=== PATIENT | male | born 1930 | race Caucasian/White ===

== ENCOUNTER 2018-04-08 12:00 | Emergency (ER) | payer MEDICARE ==
[~2018-04-08] VITALS: Ht 182.9 cm; Wt 70.3 kg
[~2018-04-08 12:00] MED LIST: WARF1TAB47 PO
--- NOTE | 2018-04-08 12:03 | NUR ---
Dr Bates at the bedside for MSE.
[2018-04-08] MEDS ORDERED: DILTIAZEM HCL 25 MG IV ONE (12:09)
[2018-04-08 12:10] VITALS: BP 149/74
[2018-04-08] MEDS ORDERED: DILTIAZEM HCL 25 MG IV IV ONE ×2 (12:15→12:30)
[2018-04-08] MEDS ORDERED: ASPIRIN 81 MG TAB.CHEW ONE (12:22)
[2018-04-08 12:27] LABS: BASOPHILS % (AUTO) 0.5 % (0.0-2.0); EOSINOPHILS % (AUTO) 0.2 % (0.0-7.0); HEMOGLOBIN 12.5 g/dL (12.5-16.3); LYMPHOCYTES % (AUTO) 12.6 % (20.5-51.5); MEAN CORPUSCULAR HEMOGLOBIN 30.7 uug (23.8-33.4); MEAN CORPUSCULAR HGB CONC 33 g/dL (32.5-36.3); MEAN CORPUSCULAR VOLUME 93.1 fL (73.0-96.2); MONOCYTES # (AUTO) 0.9 K/uL (2.0-10.0); MONOCYTES % (AUTO) 12.2 % (0.0-11.0); NEUTROPHILS # (AUTO) 5.7 K/uL (1.8-8.9); NEUTROPHILS % (AUTO) 74.5 % (38.5-71.5); PLATELET COUNT (AUTO) 212 K/uL (152-348); RED BLOOD CELL COUNT(AUTO) 4.08 MIL/uL (4.06-5.63); WHITE BLOOD COUNT (AUTO) 7.7 K/uL (3.6-10.2)
[2018-04-08] MEDS ORDERED: ASPIRIN 81 MG TAB.CHEW PO ONE (12:30)
[2018-04-08 12:33] LABS: CARBON DIOXIDE 28 mmol/L (21-32); CHLORIDE 104 mmol/L (98-107); CREATININE 1.3 mg/dL (0.6-1.3); GLUCOSE 150 mg/dL (74-106); POTASSIUM 4.6 mmol/L (3.5-5.1); UREA NITROGEN, BLOOD 23 mg/dL (7-18)
--- NOTE | 2018-04-08 12:40 | NUR ---
Pt out of ER for CT.
[2018-04-08 12:46] LABS: ALANINE AMINOTRANSFERASE 35 U/L (16-63); ALKALINE PHOSPHATASE 70 U/L (50-136); ASPARTATE AMINOTRANSFERASE 23 U/L (15-37); BILIRUBIN,DIRECT 0.3 mg/dL (0.0-0.2); BILIRUBIN,TOTAL 1.2 mg/dL (0.2-1.0); TOTAL PROTEIN, SERUM 7.4 g/dL (6.4-8.2)
--- NOTE | 2018-04-08 12:51 | NUR ---
Pt back from CT, denies pain.
[2018-04-08] MEDS ORDERED: IV NORMAL SALINE 250 ML BAG IV ONE (13:00)
[2018-04-08] MEDS ORDERED: FUROSEMIDE 20 MG/2 ML VIAL IV ONE (13:15)
[2018-04-08] MEDS ORDERED: FUROSEMIDE 40 MG/4 ML VIAL ONE (13:17)
--- NOTE | 2018-04-08 13:22 | NUR ---
ARISTIDES Caldwell spoke to Dr Blue bailon Md for Pt's PMD, Dr Osborn. Per Dr Mcarthur, pt to bed transfered to [facility].
--- NOTE | 2018-04-08 13:27 | NUR ---
Facesheet and clinical data faxed to [facility] at [facility].
[2018-04-08] MEDS ORDERED: IV NS 1000 ML 1,000 ML IV PRN (14:01)
[2018-04-08] MEDS ORDERED: ONDANSETRON 4 MG/2 ML VIAL IV PRN (14:15)
[2018-04-08] MEDS ORDERED: ACETAMINOPHEN 325 MG TABLET PO PRN (14:15)
[2018-04-08] MEDS ORDERED: MAGNESIUM HYDROXIDE 30 ML LIQUID UDC PO PRN (14:15)
[2018-04-08] MEDS ORDERED: HYDROCODONE/APAP 5-325MG TABLET PO PRN (14:15)
[2018-04-08] MEDS ORDERED: Z GUARD REMEDY PASTE 57 GM TUBE TOP PRN (14:15)
--- NOTE | 2018-04-08 14:18 | NUR ---
Call received from [facility] at [facility], Patient to be admitted by Dr. Mcarthur, room #521A.
--- NOTE | 2018-04-08 14:23 | NUR ---
Call placed to [facility], Trip #[id number], ETA [id number].
--- NOTE | 2018-04-08 14:45 | NUR ---
Report given to Bianca(RN) at [facility]. Per request of Zaki MONTEIRO/charge nurse, pt's room will be changed and updated room# will be called to me. Patient is resting comfortably in bed with eyes closed, NAD noted.
[2018-04-08 14:50] LABS: MAGNESIUM 2.1 mg/dL (1.8-2.4); PHOSPHOROUS 4.4 mg/dL (2.5-4.9)
--- NOTE | 2018-04-08 15:30 | NUR ---
Called [facility], for updated info, Pt's room changed to CVU to 106. And hands off report given by Bianca MONTEIRO to CVU RN.
--- NOTE | 2018-04-08 15:50 | NUR ---
Report given to EMT's, Pt left ER in stable condition, all belongings sent w/ pt.
[2018-04-09] MEDS ORDERED: PANTOPRAZOLE SODIUM 40 MG TABLET.DR PO SCH (07:00)
== END 2018-04-08 16:00 | disposition short-term general hospital (02) ==
LOC: ER 12:01
DX: I48.0 Paroxysmal atrial fibrillation (principal); R07.89 Other chest pain; B02.9 Zoster without complications; I11.0 Hypertensive heart disease with heart failure; I50.9 Heart failure, unspecified; J45.909 Unspecified asthma, uncomplicated; Z79.01 Long term (current) use of anticoagulants
CPT/HCPCS: 36415; 70030-TC; 70450; 71045; 83735; 84100; 85025; 85730; 93005; A4663; J1940; J3490; J7030